=== PATIENT | female | born 1985 | race Caucasian/White ===

== ENCOUNTER → 2017-03-30 | Outpatient (CLI) | payer MEDICAID ==
[2016-05-03 17:46] VITALS: BP 166/106
== END ==
LOC: RAD 15:10
DX: M25.562 Pain in left knee (principal)

== ENCOUNTER 2018-01-12 13:31 | Emergency (ER) | payer MEDICAID ==
[~2018-01-12] VITALS: Ht 157.5 cm; Wt 62.3 kg
[2018-01-12] MEDS ORDERED: SERTRALINE HYDR25 MG PO (13:39)
[2018-01-12] MEDS ORDERED: LORAZEPAM0.5 M1 PO (13:39)
[2018-01-12] MEDS ORDERED: VYVANSE30 MG PO (13:39)
[2018-01-12 14:29] LABS: HEMATOCRIT 38.2 % (37.0-47.0); HEMOGLOBIN 12.9 g/dL (12.5-16.0); MEAN CELL VOLUME 90 fl (78-100); MEAN CORPUSCULAR HEMOGLOBIN 30 pg (27-31); MEAN CORPUSCULAR HGB CONC 34 g/dL (33-37); MEAN PLATELET VOLUME 9.3 fl (7.4-10.4); PLATELET COUNT 270 K/mm3 (130-400); RED BLOOD COUNT 4.26 M/mm3 (4.10-5.30); RED CELL DISTRIBUTION WIDTH 11.6 % (11.5-14.5); WHITE BLOOD COUNT 10.4 K/mm3 (4.8-10.8)
[2018-01-12 14:53] LABS: ALBUMIN 4.1 g/dL (3.5-5.0); BUN/CREATININE RATIO 27.5 (6.0-26.0); CALCIUM 8.2 mg/dL (8.4-10.2); POTASSIUM 3.8 mmol/L (3.6-5.0); TOTAL BILIRUBIN 0.5 mg/dL (0.2-1.3); TOTAL PROTEIN 7.5 g/dL (6.3-8.2)
[2018-01-12 15:25] LABS: URINE COLOR YELLOW
[2018-01-12 15:26] LABS: URINE APPEARANCE HAZY; URINE BILIRUBIN NEGATIVE (NEGATIVE); URINE BLOOD NEGATIVE (NEGATIVE); URINE GLUCOSE NEGATIVE (NEGATIVE); URINE KETONE NEGATIVE (NEGATIVE); URINE LEUKOCYTE ESTERASE NEGATIVE (NEGATIVE); URINE NITRATE NEGATIVE (NEGATIVE); URINE PROTEIN(semi-quant) TRACE mg/dL (NEGATIVE); URINE UROBILINOGEN NORMAL (NORMAL); URINE WBC 0-1 /hpf (0-3)
[2018-01-12 15:28] LABS: URINE MUCUS PRESENT (NOT PRESENT)
[2018-01-12 15:32] LABS: LYMPHOCYTE 13 % (20-51); MONOCYTE 6 % (3-10); NEUTROPHILS 81 % (42-75)
[2018-01-12] MEDS ORDERED: ULTRAM50 M1 PO (17:21)
[2018-01-12 17:36] VITALS: BP 146/90
== END 2018-01-12 17:33 | disposition home or self-care (01) ==
LOC: ED 13:31
PROVIDERS: Physician Assistant
DX: R10.2 Pelvic and perineal pain (principal); R30.0 Dysuria; F17.210 Nicotine dependence, cigarettes, uncomplicated

== ENCOUNTER 2018-03-20 14:26 | Emergency (ER) | payer MEDICAID ==
[~2018-03-20] VITALS: Ht 157.5 cm; Wt 56.8 kg
[~2018-03-20 14:26] MED LIST: LORAZEPAM0.5 M1 PO; SERTRALINE HYDR25 MG PO; ULTRAM50 M1 PO; VYVANSE30 MG PO
[2018-03-20] MEDS ORDERED: INDERAL 10MG10 MG PO (14:52)
[2018-03-20] MEDS ORDERED: VYVANSE40 MG PO (14:54)
[2018-03-20] MEDS ORDERED: SERTRALINE50 MG PO (14:55)
[2018-03-20] MEDS ORDERED: VYVANSE50 MG PO (15:07)
[2018-03-20] MEDS ORDERED: GOOD NEIGHBOR200 M3 PO (15:09)
[2018-03-20 15:16] LABS: EOS # 0.1 (0.04-0.40); EOS % 0.9 % (1.0-5.0); HEMATOCRIT 40.5 % (37.0-47.0); HEMOGLOBIN 14.2 g/dL (12.5-16.0); LYMPH# 1.5 (1.50-4.00); MEAN CELL VOLUME 88 fl (78-100); MEAN CORPUSCULAR HEMOGLOBIN 31 pg (27-31); MEAN CORPUSCULAR HGB CONC 35 g/dL (33-37); MEAN PLATELET VOLUME 9.6 fl (7.4-10.4); MONO # 0.5 (0.20-0.80); NEU # 4.8 (1.40-6.50); PLATELET COUNT 293 K/mm3 (130-400); RED BLOOD COUNT 4.63 M/mm3 (4.10-5.30); RED CELL DISTRIBUTION WIDTH 12.2 % (11.5-14.5); WHITE BLOOD COUNT 6.9 K/mm3 (4.8-10.8)
[2018-03-20 15:27] LABS: ALBUMIN 4.8 g/dL (3.5-5.0); CALCIUM 9.1 mg/dL (8.4-10.2); POTASSIUM 3.6 mmol/L (3.6-5.0); TOTAL BILIRUBIN 1.2 mg/dL (0.2-1.3); TOTAL PROTEIN 7.8 g/dL (6.3-8.2)
[2018-03-20 16:00] VITALS: BP 139/90
[2018-03-20 16:17] LABS: URINE APPEARANCE BLOODY; URINE BILIRUBIN NEGATIVE (NEGATIVE); URINE BLOOD 250 ery/uL (NEGATIVE); URINE COLOR RED-YELLOW; URINE GLUCOSE NEGATIVE (NEGATIVE); URINE KETONE NEGATIVE (NEGATIVE); URINE NITRATE NEGATIVE (NEGATIVE); URINE PROTEIN(semi-quant) 2+ mg/dL (NEGATIVE); URINE UROBILINOGEN NORMAL (NORMAL)
[2018-03-20 16:18] LABS: URINE LEUKOCYTE ESTERASE TRACE (NEGATIVE); URINE MUCUS PRESENT (NOT PRESENT)
== END 2018-03-20 16:00 | disposition home or self-care (01) ==
LOC: ED 14:26
PROVIDERS: Physician Assistant
DX: R00.2 Palpitations (principal); F41.9 Anxiety disorder, unspecified; Z79.899 Other long term (current) drug therapy

== ENCOUNTER 2018-11-04 10:17 | Emergency (ER) | payer MEDICAID ==
[~2018-11-04] VITALS: Ht 157.5 cm; Wt 65.9 kg
[~2018-11-04 10:17] MED LIST changes: +GOOD NEIGHBOR200 M3 PO; +INDERAL 10MG10 MG PO; +SERTRALINE50 MG PO; +VYVANSE40 MG PO; +VYVANSE50 MG PO
[2018-11-04 11:07] LABS: EOS # 0.1 (0.04-0.40); EOS % 0.8 % (1.0-5.0); HEMATOCRIT 37.1 % (37.0-47.0); HEMOGLOBIN 12.8 g/dL (12.5-16.0); LYMPH# 1.3 (1.50-4.00); MEAN CELL VOLUME 90 fl (78-100); MEAN CORPUSCULAR HEMOGLOBIN 31 pg (27-31); MEAN CORPUSCULAR HGB CONC 35 g/dL (33-37); MEAN PLATELET VOLUME 8.6 fl (7.4-10.4); MONO # 0.4 (0.20-0.80); NEU # 4.5 (1.40-6.50); PLATELET COUNT 279 K/mm3 (130-400); RED BLOOD COUNT 4.12 M/mm3 (4.10-5.30); RED CELL DISTRIBUTION WIDTH 11.8 % (11.5-14.5); WHITE BLOOD COUNT 6.2 K/mm3 (4.8-10.8)
[2018-11-04] MEDS ORDERED: NORCO 325 MG-51 TA1 PO (11:43)
[2018-11-04 12:00] VITALS: BP 136/87
== END 2018-11-04 12:00 | disposition home or self-care (01) ==
LOC: ED 10:17
PROVIDERS: Family Medicine
DX: O46.91 Antepartum hemorrhage, unspecified, first trimester (principal); N93.9 Abnormal uterine and vaginal bleeding, unspecified; O29.41 Spinal and epidural anesthesia induced headache during pregnancy, first trimester; O99.341 Other mental disorders complicating pregnancy, first trimester; F32.9 Major depressive disorder, single episode, unspecified; F98.8 Other specified behavioral and emotional disorders with onset usually occurring in childhood and adolescence; O99.331 Smoking (tobacco) complicating pregnancy, first trimester; F17.210 Nicotine dependence, cigarettes, uncomplicated

== ENCOUNTER 2019-01-01 14:02 | Emergency (ER) | payer MEDICAID ==
[~2019-01-01] VITALS: Ht 157.5 cm; Wt 60.9 kg
[~2019-01-01 14:02] MED LIST changes: +NORCO 325 MG-51 TA1 PO
[2019-01-01] MEDS ORDERED: SERTRALINE50 MG PO (14:12)
[2019-01-01] MEDS ORDERED: AMOXIL500 M1 (14:12)
[2019-01-01 14:55] VITALS: BP 114/74
== END 2019-01-01 14:55 | disposition home or self-care (01) ==
LOC: ED 14:02
DX: O26.892 Other specified pregnancy related conditions, second trimester (principal); K08.89 Other specified disorders of teeth and supporting structures; O99.342 Other mental disorders complicating pregnancy, second trimester; F32.9 Major depressive disorder, single episode, unspecified; Z3A.17 17 weeks gestation of pregnancy

== ENCOUNTER 2019-09-16 16:42 | Emergency (ER) | payer MEDICAID ==
[~2019-09-16] VITALS: Wt 68.0 kg
[~2019-09-16 16:42] MED LIST changes: +AMOXIL500 M1
[2019-09-16] MEDS ORDERED: BUSPIRONE5 MG PO (16:55)
[2019-09-16 17:52] LABS: EOS # 0.1 (0.04-0.40); HEMATOCRIT 39.6 % (37.0-47.0); HEMOGLOBIN 13.2 g/dL (12.5-16.0); LYMPH# 1.4 (1.50-4.00); MEAN CELL VOLUME 90 fl (78-100); MEAN CORPUSCULAR HEMOGLOBIN 30 pg (27-31); MEAN CORPUSCULAR HGB CONC 33 g/dL (33-37); MONO # 0.6 (0.20-0.80); NEU # 3.8 (1.40-6.50); PLATELET COUNT 307 K/mm3 (130-400); RED CELL DISTRIBUTION WIDTH 13.3 % (11.5-14.5)
[2019-09-16 18:03] LABS: ALBUMIN 4.5 g/dL (3.5-5.0); POTASSIUM 3.7 mmol/L (3.5-5.1); SODIUM 142 mmol/L (136-145)
[2019-09-16 18:05] LABS: CALCIUM 8.6 mg/dL (8.3-10.5)
[2019-09-16 18:06] LABS: GLUCOSE 112 mg/dL (65-105); TOTAL PROTEIN 7.9 g/dL (6.4-8.3)
[2019-09-16 18:07] LABS: CARBON DIOXIDE 22 mmol/L (22-29)
[2019-09-16 18:08] LABS: TOTAL BILIRUBIN 0.2 mg/dL (0.2-1.2)
[2019-09-16 18:11] LABS: AST-SGOT 115 U/L (5-34)
[2019-09-16 18:12] LABS: ALT/SGPT 171 U/L (0-55); MAGNESIUM 1.48 mg/dL (1.60-2.60)
[2019-09-16 18:15] LABS: ALCOHOL IN-HOUSE < 10 mg/dL (<10)
[2019-09-16 22:22] VITALS: BP 146/91
[2019-09-16] MEDS ORDERED: METOPROLOL SUCC50 M1 PO (22:26)
[2019-09-17] MEDS ORDERED: IBU800 M1 PO (20:26)
== END 2019-09-16 22:38 | disposition home or self-care (01) ==
LOC: ED 16:42
PROVIDERS: Family Medicine
DX: F41.0 Panic disorder [episodic paroxysmal anxiety] (principal); F10.10 Alcohol abuse, uncomplicated; I10 Essential (primary) hypertension; F41.9 Anxiety disorder, unspecified; F32.9 Major depressive disorder, single episode, unspecified; Y90.6 Blood alcohol level of 120-199 mg/100 ml
CPT/HCPCS: J2060; J3475

== ENCOUNTER → 2019-11-05 | Outpatient (CLI) | payer MEDICAID ==
[2019-09-17 20:51] VITALS: BP 164/97
[~2019-11-05] MED LIST changes: +BUSPIRONE5 MG PO; +IBU800 M1 PO; +METOPROLOL SUCC50 M1 PO
[2019-11-05 17:56] LABS: CLUE CELLS PRESENT (Not Observd)
== END ==
LOC: LAB 16:10
PROVIDERS: Nurse Practitioner Family
DX: N89.8 Other specified noninflammatory disorders of vagina (principal)
CPT/HCPCS: Q0111

== ENCOUNTER → 2019-11-27 | Outpatient (CLI) | payer MEDICAID ==
[2019-09-17 20:51] VITALS: BP 164/97
== END ==
LOC: RAD 11-13 08:30
DX: M47.816 Spondylosis without myelopathy or radiculopathy, lumbar region (principal); M54.6 Pain in thoracic spine; K80.20 Calculus of gallbladder without cholecystitis without obstruction; I10 Essential (primary) hypertension

== ENCOUNTER → 2019-12-04 | Outpatient (CLI) | payer MEDICAID ==
[2019-09-17 20:51] VITALS: BP 164/97
[2019-12-04 17:11] LABS: EOS # 0.1 (0.04-0.40); EOS % 0.8 % (1.0-5.0); HEMATOCRIT 41.5 % (37.0-47.0); HEMOGLOBIN 13.9 g/dL (12.5-16.0); LYMPH# 1.7 (1.50-4.00); MEAN CELL VOLUME 90 fl (78-100); MEAN CORPUSCULAR HEMOGLOBIN 30 pg (27-31); MEAN CORPUSCULAR HGB CONC 34 g/dL (33-37); MEAN PLATELET VOLUME 9.7 fl (7.4-10.4); MONO # 0.6 (0.20-0.80); NEU # 4.7 (1.40-6.50); PLATELET COUNT 302 K/mm3 (130-400); RED BLOOD COUNT 4.63 M/mm3 (4.10-5.30); RED CELL DISTRIBUTION WIDTH 12.4 % (11.5-14.5); WHITE BLOOD COUNT 7.1 K/mm3 (4.8-10.8)
[2019-12-04 17:27] LABS: ALBUMIN 4.6 g/dL (3.5-5.0); POTASSIUM 3.8 mmol/L (3.5-5.1)
[2019-12-04 17:28] LABS: CALCIUM 9.6 mg/dL (8.3-10.5)
[2019-12-04 17:30] LABS: TOTAL PROTEIN 7.9 g/dL (6.4-8.3)
[2019-12-04 17:31] LABS: TOTAL BILIRUBIN 0.4 mg/dL (0.2-1.2)
== END ==
LOC: LAB 15:29
PROVIDERS: Physician Assistant
DX: Z13.29 Encounter for screening for other suspected endocrine disorder (principal); K80.20 Calculus of gallbladder without cholecystitis without obstruction; R63.5 Abnormal weight gain

== ENCOUNTER → 2019-12-06 | Outpatient (CLI) | payer MEDICAID ==
[2019-09-17 20:51] VITALS: BP 164/97
== END ==
LOC: RAD 09:00
DX: K80.20 Calculus of gallbladder without cholecystitis without obstruction (principal); K76.0 Fatty (change of) liver, not elsewhere classified

== ENCOUNTER → 2020-01-31 | Outpatient (CLI) | payer MEDICAID ==
[2019-09-17 20:51] VITALS: BP 164/97
== END ==
LOC: LAB 13:22
DX: N92.6 Irregular menstruation, unspecified (principal)

== ENCOUNTER → 2021-03-02 | Outpatient (CLI) | payer MEDICAID | LOC: RAD 16:24 | DX: M54.6 Pain in thoracic spine (principal); V89.2XXA Person injured in unspecified motor-vehicle accident, traffic, initial encounter ==

== ENCOUNTER → 2022-07-27 | Outpatient (CLI) | payer MEDICAID | LOC: RAD 06-24 16:15 | DX: M47.816 Spondylosis without myelopathy or radiculopathy, lumbar region (principal); M51.36 Other intervertebral disc degeneration, lumbar region; N83.292 Other ovarian cyst, left side; N85.2 Hypertrophy of uterus ==

== ENCOUNTER → 2023-12-14 | Outpatient (CLI) | payer MEDICAID ==
[~2023-12-14] MED LIST changes: +SERTRALINE HYD100 MG PO; +TRAMADOL 50 MG TAB PO; +VALACYCLOVIR500 MG PO
[2023-12-14 15:54] LABS: BASO # 0.02 K/mm3 (0.02-0.10); EOS # 0.07 K/mm3 (0.04-0.40); EOS % 1.3 % (1.0-5.0); HEMATOCRIT 40.1 % (37.0-47.0); LYMPH# 1.39 K/mm3 (1.50-4.00); MEAN CELL VOLUME 91 fl (78-100); MEAN CORPUSCULAR HEMOGLOBIN 30 pg (27-31); MEAN CORPUSCULAR HGB CONC 32 g/dL (33-37); MEAN PLATELET VOLUME 9.1 fl (7.4-10.4); MONO # 0.43 K/mm3 (0.20-0.80); NEU # 3.34 K/mm3 (1.40-6.50); PLATELET COUNT 231 K/mm3 (130-400); RED BLOOD COUNT 4.41 M/mm3 (4.10-5.30); RED CELL DISTRIBUTION WIDTH 14.9 % (11.5-14.5); WHITE BLOOD COUNT 5.3 K/mm3 (4.8-10.8)
[2023-12-14 16:01] LABS: CALCIUM 9.2 mg/dL (8.3-10.5)
[2023-12-14 16:03] LABS: TOTAL PROTEIN 7.6 g/dL (6.4-8.3)
[2023-12-14 16:04] LABS: TOTAL BILIRUBIN 0.5 mg/dL (0.2-1.2)
[2023-12-14 16:08] LABS: ALBUMIN 4.4 g/dL (3.5-5.0)
== END ==
LOC: LAB 15:40
PROVIDERS: Physician Assistant
DX: Z13.29 Encounter for screening for other suspected endocrine disorder (principal); Z13.220 Encounter for screening for lipoid disorders; R73.9 Hyperglycemia, unspecified; K90.9 Intestinal malabsorption, unspecified; R53.83 Other fatigue

== ENCOUNTER → 2024-04-05 | Outpatient (CLI) | payer MEDICAID ==
[2024-04-05 16:50] LABS: ALBUMIN 4.3 g/dL (3.5-5.0)
[2024-04-05 16:52] LABS: CALCIUM 9.1 mg/dL (8.3-10.5)
[2024-04-05 16:53] LABS: TOTAL PROTEIN 7.9 g/dL (6.4-8.3)
[2024-04-05 16:55] LABS: TOTAL BILIRUBIN 0.4 mg/dL (0.2-1.2)
== END ==
LOC: RAD 16:13 → LAB 16:13
PROVIDERS: Physician Assistant
DX: R74.01 Elevation of levels of liver transaminase levels (principal)